=== PATIENT | male | born 1945 | race Caucasian/White ===

== ENCOUNTER → 2016-08-08 | Outpatient (CLI) | payer MEDICARE, OTHER | END | disposition home or self-care (01) | LOC: MW.CHUR 13:22 | PROVIDERS: ATTEND Urology | DX: R73.09 Other abnormal glucose (principal); R97.20 Elevated prostate specific antigen [PSA]; R35.0 Frequency of micturition | CPT/HCPCS: 36415; 76872; 81001; 84153; 99203 ==

== ENCOUNTER → 2016-09-02 | Outpatient (CLI) | payer MEDICARE, OTHER | LOC: MW.CHUR 13:17 | PROVIDERS: ATTEND Urology | DX: R97.20 Elevated prostate specific antigen [PSA] (principal); R35.0 Frequency of micturition | CPT/HCPCS: 55700; 76872; 76942; 81001; 88305; J2250 ==

== ENCOUNTER → 2016-10-11 | Outpatient (CLI) | payer MEDICARE, OTHER | LOC: MW.CHFP 14:08 | PROVIDERS: ATTEND Family Medicine | DX: R30.0 Dysuria (principal); N41.0 Acute prostatitis; N30.00 Acute cystitis without hematuria; Z98.890 Other specified postprocedural states; R73.03 Prediabetes | CPT/HCPCS: 81001; 99214 ==

== ENCOUNTER → 2016-11-01 | Outpatient (CLI) | payer MEDICARE, OTHER | LOC: MW.LAB 11:05 | PROVIDERS: ATTEND Urology | DX: N41.0 Acute prostatitis (principal) | CPT/HCPCS: 81001; 87086; 87088; 87186 ==

== ENCOUNTER 2017-07-24 17:12 | Emergency (ER) | payer MEDICARE, OTHER ==
[2017-07-24] MEDS ORDERED: EPINEPHrine 1 MG/ML SDV ONE (17:16)
[2017-07-24] MEDS ORDERED: Sodium Chloride 0.9% 1,000 ML IV ONE (17:19)
[2017-07-24] MEDS ORDERED: Sodium Chloride 0.9% 2.5 ML Syringe FLUSH PRN (17:19)
[2017-07-24] MEDS ORDERED: diphenhydrAMINE 50 MG/ML SDV IVPUSH ONE (17:19)
[2017-07-24] MEDS ORDERED: Famotidine 20 MG/2 ML SDV IVPUSH ONE (17:19)
[2017-07-24] MEDS ORDERED: methylPREDNISolone Sodium Succinate 125 MG/2 ML SDV IVPUSH ONE (17:19)
[2017-07-24] MEDS ORDERED: Sodium Chloride 0.9% 10 ML Syringe FLUSH PRN (17:19)
[2017-07-24] MEDS ORDERED: EPINEPHrine 1 MG/ML SDV IM ONE (17:25)
--- NOTE | 2017-07-24 17:47 | EDM.PDOC ---
ED HPI GENERAL MEDICAL PROBLEM - General Chief Complaint: Allergic Reaction Stated Complaint: PT HAS DIFFICULTY BREATHING Time Seen by Provider: 07/24/17 17:16 Source of Information: Reports: Patient History Limitations: Reports: No Limitations - History of Present Illness INITIAL COMMENTS - FREE TEXT/NARRATIVE: History of present illness: []Patient was at home when he developed an allergic reaction. He is unsure what caused it but he did get a new vitamin D tablet today. He has tongue swelling I swelling and diffuse rash Review of systems: As per history of present illness and below otherwise all systems reviewed and negative. Past medical history: As per history of present illness and as reviewed below otherwise noncontributory. Surgical history: As per history of present illness and as reviewed below otherwise noncontributory. Social history: No reported history of drug or alcohol abuse. Family history: As per history of present illness and as reviewed below otherwise noncontributory. Physical exam: General: Well developed, well nourished in NAD HEENT: Atraumatic, normocephalic, pupils reactive, negative for conjunctival pallor or scleral icterus, mucous membranes moist, throat clear, neck supple, nontender, trachea midline. Lungs: Clear to auscultation, breath sounds equal bilaterally, chest nontender. Heart: S1S2, regular, negative for clicks, rubs, or JVD. Abdomen: Soft, nondistended, nontender. Negative for masses or hepatosplenomegaly. Negative for costovertebral tenderness. Pelvis: Stable nontender. Genitourinary: Deferred. Rectal: Deferred. Extremities: Atraumatic, negative for cords or calf pain. Neurovascular unremarkable. Neuro: Awake, alert, oriented. Cranial nerves II through XII unremarkable. Cerebellum unremarkable. Motor and sensory unremarkable throughout. Exam nonfocal. Diagnostics: [] Therapeutics: []Epinephrine and Solu-Medrol Benadryl Pepcid and IV fluids given his observed Impression: []Anaphylaxis Plan: [] EpiPen, Benadryl follow-up with PMD Definitive disposition and diagnosis as appropriate pending reevaluation and review of above. - Related Data Allergies Allergy/AdvReac Type Severity Reaction Status Date / Time moxifloxacin [From Avelox] Allergy Hives Verified 07/24/17 17:45 Penicillins Allergy Cannot Verified 07/24/17 17:45 Remember shellfish derived Allergy Anaphylactic Verified 07/24/17 17:45 Shock Sulfa (Sulfonamide Allergy Rash Verified 07/24/17 17:45 Antibiotics) Tetracyclines Allergy Other Verified 07/24/17 17:45 Home Meds: Home Meds Aspirin 81 mg PO ONETIME 10/14/15 [History] Levothyroxine [Synthroid] 50 mcg PO ASDIRECTED 10/14/15 [History] Multivitamin [Multivitamins] 1 tab PO DAILY 10/14/15 [History] Niacin 500 mg PO DAILY 10/14/15 [History] Rosuvastatin [Crestor] 10 mg PO DAILY 10/14/15 [History] Telmisartan [Micardis] 20 mg PO DAILY 10/14/15 [History] Tamsulosin [Flomax] 0.4 mg PO BID 11/02/16 [History] metFORMIN [Glucophage XR] 1,000 mg PO DAILY 11/02/16 [History] EPINEPHrine [Epipen 2-Derrick] 0.3 mg IJ ASDIRECTED PRN #1 pack 07/24/17 [Rx] Past Medical History Cardiovascular History: Reports: High Cholesterol, Hypertension Musculoskeletal History: Reports: Fracture Endocrine/Metabolic History: Reports: Hypothyroidism - Past Surgical History HEENT Surgical History: Reports: Tonsillectomy GI Surgical History: Reports: Appendectomy, Colonoscopy Social & Family History - Family History Family Medical History: Noncontributory - Tobacco Use Smoking Status *Q: Never Smoker - Recreational Drug Use Recreational Drug Use: No ED ROS ALLERGIC REACTION - Review of Systems Review Of Systems: See Below (See history of present illness) ED EXAM GENERAL NO PERIP PULSE - Physical Exam Exam: See Below (See history of present illness) Course - Vital Signs Last Recorded V/S: Last Vital Signs Temp 97.7 F 07/24/17 17:45 Pulse 83 07/24/17 18:26 Resp 14 07/24/17 18:26 BP 122/62 07/24/17 18:26 Pulse Ox 98 07/24/17 18:26 - Orders/Labs/Meds Orders: Active Orders 24 hr Category Date Time Status UA W/MICROSCOPIC [URIN] Stat Lab 07/24/17 17:54 Uncollected Sodium Chloride 0.9% [Saline Flush] Med 07/24/17 17:19 Active 10 ml FLUSH ASDIRECTED PRN Sodium Chloride 0.9% [Saline Flush] Med 07/24/17 17:19 Active 2.5 ml FLUSH ASDIRECTED PRN Saline Lock Insert [OM.PC] Stat Oth 07/24/17 17:19 Ordered Medication Orders Sodium Chloride (Saline Flush) 10 ml FLUSH ASDIRECTED PRN PRN Reason: Keep Vein Open Sodium Chloride (Saline Flush) 2.5 ml FLUSH ASDIRECTED PRN PRN Reason: Keep Vein Open Meds: Medications Generic Name Dose Route Start Last Admin Trade Name Freq PRN Reason Stop Dose Admin Sodium Chloride 10 ml 07/24/17 17:19 Saline Flush FLUSH ASDIRECTED PRN Keep Vein Open Sodium Chloride 2.5 ml 07/24/17 17:19 Saline Flush FLUSH ASDIRECTED PRN Keep Vein Open Discontinued Medications Generic Name Dose Route Start Last Admin Trade Name Freq PRN Reason Stop Dose Admin Diphenhydramine HCl 50 mg 07/24/17 17:19 07/24/17 17:33 Benadryl IVPUSH 07/24/17 17:20 50 mg ONETIME ONE Administration Epinephrine HCl Confirm 07/24/17 17:16 07/24/17 17:39 Adrenalin Administered 07/24/17 17:17 Not Given Dose 1 mg .ROUTE .STK-MED ONE Epinephrine HCl 0.4 mg 07/24/17 17:25 07/24/17 17:38 Adrenalin IM 07/24/17 17:26 0.4 mg ONETIME ONE Administration Famotidine 20 mg 07/24/17 17:19 07/24/17 17:33 Pepcid IVPUSH 07/24/17 17:20 20 mg ONETIME ONE Administration Sodium Chloride 1,000 mls @ 999 mls/hr 07/24/17 17:19 07/24/17 17:33 Normal Saline IV 07/24/17 18:19 999 mls/hr .Bolus ONE Administration Methylprednisolone Sodium Succinate 125 mg 07/24/17 17:19 07/24/17 17:33 Solu-Medrol IVPUSH 07/24/17 17:20 125 mg ONETIME ONE Administration Departure - Departure Time of Disposition: 18:39 Disposition: Home, Self-Care 01 Condition: Good Clinical Impression: Allergic reaction Qualifiers: Encounter type: initial encounter Qualified Code(s): T78.40XA - Allergy, unspecified, initial encounter - Discharge Information Prescriptions: EPINEPHrine [Epipen 2-Derrick] 0.3 mg IJ ASDIRECTED PRN #1 pack PRN Reason: Allergies Additional Instructions: The following information is given to patients seen in the emergency department who are being discharged to home. This information is to outline your options for follow-up care. We provide all patients seen in our emergency department with a follow-up referral. The need for follow-up, as well as the timing and circumstances, are variable depending upon the specifics of your emergency department visit. If you don't have a primary care physician on staff, we will provide you with a referral. We always advise you to contact your personal physician following an emergency department visit to inform them of the circumstance of the visit and for follow-up with them and/or the need for any referrals to a consulting specialist. The emergency department will also refer you to a specialist when appropriate. This referral assures that you have the opportunity for follow-up care with a specialist. All of these measure are taken in an effort to provide you with optimal care, which includes your follow-up. Under all circumstances we always encourage you to contact your private physician who remains a resource for coordinating your care. When calling for follow-up care, please make the office aware that this follow-up is from your recent emergency room visit. If for any reason you are refused follow-up, please contact the [facility] Emergency Department at and asked to speak to the emergency department charge nurse. EpiPen, Benadryl, Pepcid return if symptoms worsen or change [facility] [address] [place] [id number] - My Orders Last 24 Hours: My Active Orders 07/24/17 17:19 Sodium Chloride 0.9% [Saline Flush] 10 ml FLUSH ASDIRECTED PRN Sodium Chloride 0.9% [Saline Flush] 2.5 ml FLUSH ASDIRECTED PRN Saline Lock Insert [OM.PC] Stat 07/24/17 17:54 UA W/MICROSCOPIC [URIN] Stat - Assessment/Plan Last 24 Hours: My Active Orders 07/24/17 17:19 Sodium Chloride 0.9% [Saline Flush] 10 ml FLUSH ASDIRECTED PRN Sodium Chloride 0.9% [Saline Flush] 2.5 ml FLUSH ASDIRECTED PRN Saline Lock Insert [OM.PC] Stat 07/24/17 17:54 UA W/MICROSCOPIC [URIN] Stat
[2017-07-24 18:58] VITALS: BP 120/64
== END 2017-07-24 18:55 | disposition home or self-care (01) ==
LOC: MW.ED 17:12
DX: T78.2XXA Anaphylactic shock, unspecified, initial encounter (principal); I10 Essential (primary) hypertension; E78.00 Pure hypercholesterolemia, unspecified; E03.9 Hypothyroidism, unspecified; Z79.82 Long term (current) use of aspirin; Z79.84 Long term (current) use of oral hypoglycemic drugs; Z79.899 Other long term (current) drug therapy; Z88.0 Allergy status to penicillin; Z88.1 Allergy status to other antibiotic agents; Z88.2 Allergy status to sulfonamides; Z91.013 Allergy to seafood
CPT/HCPCS: 96361; 96372; 96374; 96375; 99285; J0171; J1200; J2930; J7040; 99283

== ENCOUNTER 2018-01-02 13:38 | Emergency (ER) | payer MEDICARE, OTHER ==
--- NOTE | 2018-01-02 13:55 | EDM.PDOC ---
ED HPI GENERAL MEDICAL PROBLEM - General Chief Complaint: General Stated Complaint: UNK Time Seen by Provider: 01/02/18 13:40 Source of Information: Reports: Patient History Limitations: Reports: No Limitations - History of Present Illness INITIAL COMMENTS - FREE TEXT/NARRATIVE: History of present illness: []Patient had a prostate biopsy 2 days ago in [facility] and the day after had some rectal bleeding and clots in his urine on a today had more clots in his urine and felt weak and ill. Patient had similar experience of the prostate biopsy here in the past and he became septic had to have antibiotics and infusion therapy for one week. Patient is here today to make sure he does not have an infection. He had one episode of chills and vomiting, denies any abdominal pain, fevers, pain with urination or diarrhea. Review of systems: As per history of present illness and below otherwise all systems reviewed and negative. Past medical history: As per history of present illness and as reviewed below otherwise noncontributory. Surgical history: As per history of present illness and as reviewed below otherwise noncontributory. Social history: No reported history of drug or alcohol abuse. Family history: As per history of present illness and as reviewed below otherwise noncontributory. Physical exam: General: Well developed, well nourished in NAD HEENT: Atraumatic, normocephalic, pupils reactive, negative for conjunctival pallor or scleral icterus, mucous membranes moist, throat clear, neck supple, nontender, trachea midline. Lungs: Clear to auscultation, breath sounds equal bilaterally, chest nontender. Heart: S1S2, regular, negative for clicks, rubs, or JVD. Abdomen: Soft, nondistended, nontender. Negative for masses or hepatosplenomegaly. Negative for costovertebral tenderness. Pelvis: Stable nontender. Genitourinary: Deferred. Rectal: Deferred. Extremities: Atraumatic, negative for cords or calf pain. Neurovascular unremarkable. Neuro: Awake, alert, oriented. Cranial nerves II through XII unremarkable. Cerebellum unremarkable. Motor and sensory unremarkable throughout. Exam nonfocal. Diagnostics: []CBC elevated with a shift, chemistry normal UA shows UTI Therapeutics: [] Impression: [] Plan: [] Definitive disposition and diagnosis as appropriate pending reevaluation and review of above. Back Pain Score (Numeric/FACES): 0 - Related Data Allergies Allergy/AdvReac Type Severity Reaction Status Date / Time moxifloxacin [From Avelox] Allergy Hives Verified 01/02/18 13:52 Penicillins Allergy Cannot Verified 01/02/18 13:52 Remember shellfish derived Allergy Anaphylactic Verified 01/02/18 13:52 Shock Sulfa (Sulfonamide Allergy Rash Verified 01/02/18 13:52 Antibiotics) Tetracyclines Allergy Other Verified 01/02/18 13:52 Home Meds: Home Meds Aspirin 81 mg PO ONETIME 10/14/15 [History] Levothyroxine [Synthroid] 50 mcg PO ASDIRECTED 10/14/15 [History] Multivitamin [Multivitamins] 1 tab PO DAILY 10/14/15 [History] Niacin 500 mg PO DAILY 10/14/15 [History] Rosuvastatin [Crestor] 10 mg PO DAILY 10/14/15 [History] Telmisartan [Micardis] 20 mg PO DAILY 10/14/15 [History] Tamsulosin [Flomax] 0.4 mg PO BID 11/02/16 [History] metFORMIN [Glucophage XR] 1,000 mg PO DAILY 11/02/16 [History] EPINEPHrine [Epipen 2-Derrick] 0.3 mg IJ ASDIRECTED PRN #1 pack 07/24/17 [Rx] Azithromycin [Zithromax] 250 mg PO DAILY 01/02/18 [History] Celecoxib 200 mg PO DAILY 01/02/18 [History] Nitrofurantoin Macrocrystal [Macrodantin] 100 mg PO BID #14 capsule 01/02/18 [Rx ] Omeprazole 20 mg PO DAILY 01/02/18 [History] Past Medical History Cardiovascular History: Reports: High Cholesterol, Hypertension Genitourinary History: Reports: Prostate Disorder Musculoskeletal History: Reports: Fracture Endocrine/Metabolic History: Reports: Hypothyroidism - Infectious Disease History Infectious Disease History: Reports: Chicken Pox, Measles, Mumps - Past Surgical History HEENT Surgical History: Reports: Tonsillectomy GI Surgical History: Reports: Appendectomy, Colonoscopy Social & Family History - Family History Family Medical History: Noncontributory ED ROS GENERAL - Review of Systems Review Of Systems: ROS reveals no pertinent complaints other than HPI. ED EXAM, GENERAL - Physical Exam Exam: See Below (History of present illness) Course - Vital Signs Last Recorded V/S: Last Vital Signs Temp 98.4 F 01/02/18 16:26 Pulse 88 01/02/18 16:26 Resp 18 01/02/18 16:26 BP 129/79 01/02/18 16:26 Pulse Ox 99 01/02/18 16:26 - Orders/Labs/Meds Orders: Active Orders 24 hr Category Date Time Status CULTURE BLOOD [BC] Stat Lab 01/02/18 14:20 Results CULTURE BLOOD [BC] Stat Lab 01/02/18 14:41 Results UA W/MICROSCOPIC [URIN] Stat Lab 01/02/18 14:30 Ordered Sodium Chloride 0.9% [Saline Flush] Med 01/02/18 14:05 Active 10 ml FLUSH ASDIRECTED PRN Sodium Chloride 0.9% [Saline Flush] Med 01/02/18 14:05 Active 2.5 ml FLUSH ASDIRECTED PRN Blood Culture x2 Reflex Set [OM.PC] Stat Oth 01/02/18 14:06 Ordered Saline Lock Insert [OM.PC] Stat Oth 01/02/18 14:05 Ordered Medication Orders Sodium Chloride (Saline Flush) 10 ml FLUSH ASDIRECTED PRN PRN Reason: Keep Vein Open Last Admin: 01/02/18 15:42 Dose: 10 ml Sodium Chloride (Saline Flush) 2.5 ml FLUSH ASDIRECTED PRN PRN Reason: Keep Vein Open Last Admin: 01/02/18 15:43 Dose: 2.5 ml Labs: Laboratory Tests 01/02/18 01/02/18 01/02/18 Range/Units 14:30 14:35 14:35 WBC 15.42 H (4.0-11.0) K/uL RBC 4.54 (4.50-5.90) M/uL Hgb 13.4 (13.0-17.0) g/dL Hct 40.7 (38.0-50.0) % MCV 89.6 (80.0-98.0) fL MCH 29.5 (27.0-32.0) pg MCHC 32.9 (31.0-37.0) g/dL RDW Std Deviation 51.7 (28.0-62.0) fl RDW Coeff of Nohemi 16 H (11.0-15.0) % Plt Count 236 (150-400) K/uL MPV 9.00 (7.40-12.00) fL Neut % (Auto) 86.0 H (48.0-80.0) % Lymph % (Auto) 6.9 L (16.0-40.0) % [place] % (Auto) 6.8 (0.0-15.0) % Eos % (Auto) 0.1 (0.0-7.0) % Baso % (Auto) 0.2 (0.0-1.5) % Neut # (Auto) 13.3 H (1.4-5.7) K/uL Lymph # (Auto) 1.1 (0.6-2.4) K/uL [place] # (Auto) 1.1 H (0.0-0.8) K/uL Eos # (Auto) 0.0 (0.0-0.7) K/uL Baso # (Auto) 0.0 (0.0-0.1) K/uL Nucleated RBC % 0.0 /100WBC Nucleated RBCs # 0 K/uL Sodium 133 L (136-148) mmol/L Potassium 4.2 (3.5-5.1) mmol/L Chloride 99 (98-107) mmol/L Carbon Dioxide 23.1 (21.0-32.0) mmol/L BUN 13 (7.0-18.0) mg/dL Creatinine 1.3 (0.8-1.3) mg/dL Est Cr Clr Drug Dosing 50.61 mL/min Estimated GFR (MDRD) 54.1 ml/min Glucose 160 H (74-106) mg/dL Calcium 9.6 (8.5-10.1) mg/dL Total Bilirubin 0.5 (0.2-1.0) mg/dL AST 16 (15-37) IU/L ALT 17 (14-63) IU/L Alkaline Phosphatase 103 (46-116) U/L Total Protein 8.1 (6.4-8.2) g/dL Albumin 3.2 L (3.4-5.0) g/dL Globulin 4.9 H (2.0-3.5) g/dL Albumin/Globulin Ratio 0.7 L (1.3-2.8) Urine Color YELLOW Urine Appearance CLEAR Urine pH 7.0 (5.0-8.0) Ur Specific [place] <= 1.005 (1.001-1.035) Urine Protein NEGATIVE (NEGATIVE) mg/dL Urine Glucose (UA) NEGATIVE (NEGATIVE) mg/dL Urine Ketones NEGATIVE (NEGATIVE) mg/dL Urine Occult Blood SMALL H (NEGATIVE) Urine Nitrite NEGATIVE (NEGATIVE) Urine Bilirubin NEGATIVE (NEGATIVE) Urine Urobilinogen 0.2 (<2.0) EU/dL Ur Leukocyte Esterase TRACE (NEGATIVE) Urine RBC 0-2 (0-2/HPF) Urine WBC 8-12 (0-5/HPF) Ur Epithelial Cells OCCASIONAL (NONE-FEW) Urine Bacteria FEW (NEGATIVE) Urine Sperm FEW (NEGATIVE) Blood Type Antibody Screen 01/02/18 Range/Units 14:35 WBC (4.0-11.0) K/uL RBC (4.50-5.90) M/uL Hgb (13.0-17.0) g/dL Hct (38.0-50.0) % MCV (80.0-98.0) fL MCH (27.0-32.0) pg MCHC (31.0-37.0) g/dL RDW Std Deviation (28.0-62.0) fl RDW Coeff of Nohemi (11.0-15.0) % Plt Count (150-400) K/uL MPV (7.40-12.00) fL Neut % (Auto) (48.0-80.0) % Lymph % (Auto) (16.0-40.0) % [place] % (Auto) (0.0-15.0) % Eos % (Auto) (0.0-7.0) % Baso % (Auto) (0.0-1.5) % Neut # (Auto) (1.4-5.7) K/uL Lymph # (Auto) (0.6-2.4) K/uL [place] # (Auto) (0.0-0.8) K/uL Eos # (Auto) (0.0-0.7) K/uL Baso # (Auto) (0.0-0.1) K/uL Nucleated RBC % /100WBC Nucleated RBCs # K/uL Sodium (136-148) mmol/L Potassium (3.5-5.1) mmol/L Chloride (98-107) mmol/L Carbon Dioxide (21.0-32.0) mmol/L BUN (7.0-18.0) mg/dL Creatinine (0.8-1.3) mg/dL Est Cr Clr Drug Dosing mL/min Estimated GFR (MDRD) ml/min Glucose (74-106) mg/dL Calcium (8.5-10.1) mg/dL Total Bilirubin (0.2-1.0) mg/dL AST (15-37) IU/L ALT (14-63) IU/L Alkaline Phosphatase (46-116) U/L Total Protein (6.4-8.2) g/dL Albumin (3.4-5.0) g/dL Globulin (2.0-3.5) g/dL Albumin/Globulin Ratio (1.3-2.8) Urine Color Urine Appearance Urine pH (5.0-8.0) Ur Specific [place] (1.001-1.035) Urine Protein (NEGATIVE) mg/dL Urine Glucose (UA) (NEGATIVE) mg/dL Urine Ketones (NEGATIVE) mg/dL Urine Occult Blood (NEGATIVE) Urine Nitrite (NEGATIVE) Urine Bilirubin (NEGATIVE) Urine Urobilinogen (<2.0) EU/dL Ur Leukocyte Esterase (NEGATIVE) Urine RBC (0-2/HPF) Urine WBC (0-5/HPF) Ur Epithelial Cells (NONE-FEW) Urine Bacteria (NEGATIVE) Urine Sperm (NEGATIVE) Blood Type O POSITIVE Antibody Screen NEGATIVE Meds: Medications Generic Name Dose Route Start Last Admin Trade Name Freq PRN Reason Stop Dose Admin Sodium Chloride 10 ml 01/02/18 14:05 01/02/18 15:42 Saline Flush FLUSH 10 ml ASDIRECTED PRN Administration Keep Vein Open Sodium Chloride 2.5 ml 01/02/18 14:05 01/02/18 15:43 Saline Flush FLUSH 2.5 ml ASDIRECTED PRN Administration Keep Vein Open Discontinued Medications Generic Name Dose Route Start Last Admin Trade Name Freq PRN Reason Stop Dose Admin Sodium Chloride 1,000 mls @ 999 mls/hr 01/02/18 14:06 01/02/18 14:50 Normal Saline IV 01/02/18 15:06 999 mls/hr .Bolus ONE Administration Ceftriaxone Sodium/Dextrose 1 50 mls @ 100 mls/hr 01/02/18 17:00 gm/ Premix IV 01/02/18 17:29 ONETIME ONE Ketorolac Tromethamine 15 mg 01/02/18 16:14 01/02/18 16:19 Toradol IVPUSH 01/02/18 16:15 15 mg ONETIME ONE Administration Departure - Departure Time of Disposition: 17:30 Disposition: Home, Self-Care 01 Condition: Good Clinical Impression: UTI (urinary tract infection) Qualifiers: Urinary tract infection type: site unspecified Hematuria presence: without hematuria Qualified Code(s): N39.0 - Urinary tract infection, site not specified - Discharge Information *PRESCRIPTION DRUG MONITORING PROGRAM REVIEWED*: Not Applicable Prescriptions: Nitrofurantoin Macrocrystal [Macrodantin] 100 mg PO BID #14 capsule Referrals: Montrell Mohan MD [Primary Care Provider] - Forms: ED Department Discharge Additional Instructions: The following information is given to patients seen in the emergency department who are being discharged to home. This information is to outline your options for follow-up care. We provide all patients seen in our emergency department with a follow-up referral. The need for follow-up, as well as the timing and circumstances, are variable depending upon the specifics of your emergency department visit. If you don't have a primary care physician on staff, we will provide you with a referral. We always advise you to contact your personal physician following an emergency department visit to inform them of the circumstance of the visit and for follow-up with them and/or the need for any referrals to a consulting specialist. The emergency department will also refer you to a specialist when appropriate. This referral assures that you have the opportunity for follow-up care with a specialist. All of these measure are taken in an effort to provide you with optimal care, which includes your follow-up. Under all circumstances we always encourage you to contact your private physician who remains a resource for coordinating your care. When calling for follow-up care, please make the office aware that this follow-up is from your recent emergency room visit. If for any reason you are refused follow-up, please contact the [facility] Emergency Department at and asked to speak to the emergency department charge nurse. Start antibiotics first thing in the morning increase fluids until urine is clear, return if increasing fevers, not tolerating meds food or fluid or worsening pain or bleeding [facility] [address] [place] [id number] . - My Orders Last 24 Hours: My Active Orders 01/02/18 14:05 Sodium Chloride 0.9% [Saline Flush] 10 ml FLUSH ASDIRECTED PRN Sodium Chloride 0.9% [Saline Flush] 2.5 ml FLUSH ASDIRECTED PRN Saline Lock Insert [OM.PC] Stat 01/02/18 14:06 Blood Culture x2 Reflex Set [OM.PC] Stat 01/02/18 14:20 CULTURE BLOOD [BC] Stat 01/02/18 14:30 UA W/MICROSCOPIC [URIN] Stat 01/02/18 14:41 CULTURE BLOOD [BC] Stat - Assessment/Plan Last 24 Hours: My Active Orders 01/02/18 14:05 Sodium Chloride 0.9% [Saline Flush] 10 ml FLUSH ASDIRECTED PRN Sodium Chloride 0.9% [Saline Flush] 2.5 ml FLUSH ASDIRECTED PRN Saline Lock Insert [OM.PC] Stat 01/02/18 14:06 Blood Culture x2 Reflex Set [OM.PC] Stat 01/02/18 14:20 CULTURE BLOOD [BC] Stat 01/02/18 14:30 UA W/MICROSCOPIC [URIN] Stat 01/02/18 14:41 CULTURE BLOOD [BC] Stat
[2018-01-02] MEDS ORDERED: Sodium Chloride 0.9% 10 ML Syringe FLUSH PRN (14:05)
[2018-01-02] MEDS ORDERED: Sodium Chloride 0.9% 2.5 ML Syringe FLUSH PRN (14:05)
[2018-01-02] MEDS ORDERED: Sodium Chloride 0.9% 1,000 ML IV ONE (14:06)
[2018-01-02] MEDS ORDERED: Ketorolac 30 MG/ML SDV IVPUSH ONE (16:14)
[2018-01-02] MEDS ORDERED: cefTRIAXone 1 GM in Premix Bag 1 BAG IV ONE (17:00)
[2018-01-02 18:13] VITALS: BP 116/74
== END 2018-01-02 18:10 | disposition home or self-care (01) ==
LOC: MW.ED 13:38
DX: N39.0 Urinary tract infection, site not specified (principal); I10 Essential (primary) hypertension; E78.00 Pure hypercholesterolemia, unspecified; E03.9 Hypothyroidism, unspecified; Z79.82 Long term (current) use of aspirin; Z79.84 Long term (current) use of oral hypoglycemic drugs; Z79.899 Other long term (current) drug therapy; Z88.0 Allergy status to penicillin; Z88.2 Allergy status to sulfonamides; Z88.8 Allergy status to other drugs, medicaments and biological substances; Z91.013 Allergy to seafood; Z88.1 Allergy status to other antibiotic agents
CPT/HCPCS: 36415; 80053; 81001; 85025; 86850; 86900; 86901; 87040; 87086; 96361; 96365; 96375; 99285; J0696; J1885; J7040